=== PATIENT | male | born 1995 | race Asian ===

== ENCOUNTER 2017-03-26 11:21 | Emergency (ER) | payer BC ==
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
== END 2017-03-26 12:15 | disposition home or self-care (01) ==
LOC: ER 11:21
DX: S90.31XA Contusion of right foot, initial encounter (principal); S60.511A Abrasion of right hand, initial encounter; S50.311A Abrasion of right elbow, initial encounter; S70.211A Abrasion, right hip, initial encounter; V03.10XA Pedestrian on foot injured in collision with car, pick-up truck or van in traffic accident, initial encounter; Y92.410 Unspecified street and highway as the place of occurrence of the external cause; Y93.01 Activity, walking, marching and hiking
CPT/HCPCS: 99283

== ENCOUNTER 2017-04-17 14:46 | Emergency (ER) | payer BC ==
[2017-04-17] MEDS ORDERED: ONDANSETRON HCL 4 MG/2 ML VIAL ONE (15:14)
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
--- NOTE | 2017-04-17 16:21 | ER NURSING DOCUMENTATION ---
Nurse's Notes [facility] Name:Kirk Sanchez Age:21 yrs Sex:Male :1995 Arrival Date:04/17/2017 Time:14:46 Bed3 Private MD: Diagnosis:Gastroenteritis vs. Food Poisoning Presentation: 04/17 14:49 Acuity: KJ 3 bw2 14:52 Presenting complaint: Patient states: C/O STOMACH PAINS LAST FEW DAYS, THIS AM WORSE lc WITH N/V/D NO BLOOD IN EITHER OR FEVER. Transition of care: patient was not received from another setting of care. Notified ED Physician of patient's arrival and CC. 14:52 Method Of Arrival: Private Vehicle lc Triage Assessment: 14:55 General: Appears in no apparent distress, Behavior is appropriate for age, cooperative. lc Pain: Complains of pain in epigastric area Pain At worst was 6 out of 10 on a pain scale. Quality of pain is described as crampy, Pain began 2-3 days ago. GI: Abdomen is flat, Abd is soft X 4 quads Abdomen is tender to palpation in epigastric area Reports diarrhea, nausea, vomiting. Derm:. Historical: - Allergies: No known drug Allergies; - Home Meds: 1. VIVANCE - PMHx: ADHD; - PSHx: None; - Tetanus: > 10 years. - Ebola Screening: : Patient denies travel to an Ebola-affected area in the 21 days before illness onset. No symptoms or risks identified at this time. . - Immunization history: Flu Vaccine >1 year. - Social history: Smoking status: Patient states was never smoker of tobacco. Patient uses marijuana. Screenin:57 Infectious Disease Risk None. Abuse screen: Denies threats or abuse. Denies injuries lc from another. Nutritional screening: No deficits noted. Assessment: 14:57 See Triage Assessment done by same RN. GI: Abdomen is flat. lc 15:43 Reassessment: Patient denies pain at this time. Patient states feeling better. Patient lc states symptoms have improved. Patient appears in no apparent distress at this time. NAUSEA GONE, TAKING PO FLUIDS NOW,. 16:17 Reassessment: KEEPING FLUIDS DOWN, FEELS MUCH BETTER. lc Vital Signs: 14:51 BP 125 / 83; Pulse 71; Resp 12; Temp 98.1(O); Pulse Ox 96% on R/A; Weight 99.79 kg (R); arc Height 6 ft. 5 in. (195.58 cm) (R); Pain 6/10; 15:30 BP 135 / 67 (auto/); Pulse 74; Resp 16; Pulse Ox 94% on R/A; Pain 0/10; lc 16:17 BP 134 / 54; Pulse 72; Resp 16; Pulse Ox 94% on R/A; Pain 0/10; lc 14:51 Body Mass Index 26.09 (99.79 kg, 195.58 cm) [facility] ED Course: 14:48 Patient arrived in ED. arc 14:49 Triage completed. bw2 14:49 Dejuan Cardona MD is Attending Physician. tl1 14:52 Rachana Alfaro RN is Primary Nurse. 14:57 Valuables Remains with patient Patient has correct armband on for positive lc identification. Bed in low position. Call light in reach. 15:02 Inserted peripheral IV: 20 gauge in left forearm. sj Administered Medications: 15:00 Drug: NS 0.9% 1000 ml; Route: IV; Rate: bolus; Site: left antecubital; lc 15:42 Follow up: IV Status: Completed infusion; IV Intake: 1000ml 15:05 Drug: Zofran 4 mg; Route: IVP; Infused Over: 2 mins; Site: left antecubital; lc 15:30 Follow up: Response: Nausea is decreased lc Intake: 15:42 IV: 1000ml; Total: 1000ml. Outcome: 16:02 Discharge ordered by . tl1 16:17 Discharged to home ambulatory. 16:17 Condition: stable 16:17 Discharge Assessment: Patient awake, alert and oriented x 3. No cognitive and/or functional deficits noted. Patient verbalized understanding of disposition instructions. 16:17 Discharge instructions given to patient, Instructed on discharge instructions, follow up and referral plans. medication usage, HYDRATION Demonstrated understanding of instructions, medications, Prescriptions given X 1. 16:20 Patient left the ED. 04/18 11:54 Discharge F/U Call: Spoke with: patient. How are you managing your pain? Have you lc filled your prescriptions? no. Reasons not filled: DID NOT NEED, FEELING BETTER Did your discharge instructions answer all of your questions? yes Signatures: Rachana Alfaro RN RN Dejuan Cardona MD MD tl1 Brianna Barlow, Anuradha Edmondah Aramis, [facility] bw2
== END 2017-04-17 16:21 | disposition home or self-care (01) ==
LOC: ER 14:46
DX: R11.2 Nausea with vomiting, unspecified (principal); R19.7 Diarrhea, unspecified; E86.0 Dehydration
CPT/HCPCS: 96361; 96374; 99283; J2405